=== PATIENT | female | born 1955 | race Caucasian/White ===

== ENCOUNTER 2017-05-05 07:28 | Day surgery (SDC) | payer OTHER ==
[~2017-05-05 07:28] MED LIST: SOD CHLORIDE 0.9% 1,000 ML IV
[2017-05-05] MEDS ORDERED: NEOSTIGMINE 3 MG/3 ML SYRINGE (12:16)
[2017-05-05] MEDS ORDERED: GLYCOPYRROLATE 0.4 MG INJ (12:16)
[2017-05-05] MEDS ORDERED: PROPOFOL 20 ML (12:16)
[2017-05-05] MEDS ORDERED: MIDAZOLAM 1 MG/ML 2 ML INJ (12:16)
[2017-05-05] MEDS ORDERED: ROCURONIUM 50 MG INJ (12:16)
[2017-05-05] MEDS ORDERED: CEFAZOLIN 1 GM INJ (12:16)
[2017-05-05] MEDS ORDERED: FENTAnyl 50 MCG/ML VIAL ×2 (12:16→13:10)
[2017-05-05] MEDS ORDERED: ONDANSETRON 4 MG INJ (12:16)
[2017-05-05] MEDS ORDERED: DEXAMETHASONE 4 MG/ML 1 ML INJ (12:17)
[2017-05-05] MEDS: ISOSULFAN BLUE 1% 5 ML INJ SC (12:53)
[2017-05-05] MEDS ORDERED: DIPHENHYDRAMINE 50 MG INJ IV (13:00)
[2017-05-05] MEDS ORDERED: IPRATROPIUM (NEB) 0.5 MG/2.5 ML AMP HHN (13:00)
[2017-05-05] MEDS ORDERED: FENTAnyl 50 MCG/ML VIAL IV ×3 (13:00)
[2017-05-05] MEDS ORDERED: ONDANSETRON 4 MG INJ IV ×2 (13:00→14:00)
[2017-05-05] MEDS ORDERED: hydrALAzine 20 MG INJ IV (13:00)
[2017-05-05] MEDS ORDERED: MIDAZOLAM 1 MG/ML 2 ML INJ IV (13:00)
[2017-05-05] MEDS ORDERED: LABETALOL HCL 20MG INJ IV (13:00)
[2017-05-05] MEDS ORDERED: MEPERIDINE 25 MG INJ IV (13:00)
[2017-05-05] MEDS ORDERED: TRIMETHOBENZAMIDE 100 MG/ML VIAL IM (13:00)
[2017-05-05] MEDS ORDERED: HYDROmorphONE (0.2 MG/ML) 10ML SYG IV ×3 (13:00)
[2017-05-05] MEDS ORDERED: hydrALAzine 20 MG INJ (13:00)
[2017-05-05] MEDS ORDERED: ALBUTEROL 0.083% (NEB) 2.5 MG/3 ML AMP HHN (13:00)
[2017-05-05] MEDS ORDERED: EPHEDrine SULFATE 50 MG/5 ML SYG IV (13:00)
[2017-05-05] MEDS ORDERED: OXYCODONE/ACETAMINOPHEN (5/325) TAB PO ×2 (13:00)
[2017-05-05] MEDS ORDERED: LABETALOL HCL 20MG INJ (13:32)
[2017-05-05] MEDS ORDERED: SUGAMMADEX SODIUM 200 MG/2 ML VIAL IV (13:45)
[2017-05-05] MEDS: CEFAZOLIN 2 GM/50 ML (PMX) 50 ML IVPB (16:10)
[2017-05-05] MEDS: D5W-0.45 NACL + KCL 20 MEQ 1,000 ML IV (17:11)
[2017-05-05] MEDS: ACETAMINOPHEN 1000MG/100ML IV 100 ML IVPB (17:33)
[2017-05-06] MEDS: morphine 2 MG INJ IV (00:31)
[2017-05-06] MEDS: D5W-0.45 NACL + KCL 20 MEQ 1,000 ML IV ×2 (00:42→06:24)
[2017-05-06] MEDS: HYDROCHLOROTHIAZIDE 12.5 MG CAP PO (09:00)
[2017-05-06] MEDS ORDERED: HYDROCODONE/APAP (5/325) TAB PO (12:30)
== END 2017-05-06 18:10 | disposition home or self-care (01) ==
LOC: SDS 07:28 → REC 15:45 → SDS 07:28 → REC 14:08 → MS2 15:45 → SDS 05-06 18:10
DX: C50.911 Malignant neoplasm of unspecified site of right female breast (principal); I10 Essential (primary) hypertension; E78.5 Hyperlipidemia, unspecified
CPT/HCPCS: 19301; 88307